=== PATIENT | female | born 1940 | race Hispanic/Latino ===

== ENCOUNTER 2017-10-28 15:24 | Outpatient (CLI) | payer MEDICARE ==
--- NOTE | 2017-11-02 07:16 | XRay Report ---
Right knee 3 views: History: Knee pain. Findings: Mild osteopenia. Mild arthritic changes medial and patellofemoral compartment knee joint. No joint effusion. No fracture. No soft tissue calcification. Impression: Mild arthritic changes medial and patellofemoral compartment knee. The
--- NOTE | 2017-11-02 07:19 | XRay Report ---
Right wrist 2 views: History: Wrist pain. 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 Mild arthritic changes of the first carpometacarpal joint. No fracture. No soft tissue calcification. Impression: Arthritic changes scapho- trapezoid joint radial aspect right wrist.
== END 2017-10-28 15:25 | disposition home or self-care (01) ==
LOC: XRAY 15:24
PROVIDERS: ATTEND Internal Medicine
DX: M17.11 Unilateral primary osteoarthritis, right knee (principal); M19.031 Primary osteoarthritis, right wrist